=== PATIENT | male | born 1970 | race Hispanic/Latino ===

== ENCOUNTER 2021-09-03 13:50 | Inpatient (IN) | payer BC, OTHER ==
[2021-09-03] VITALS (14 sets, daily range): BP systolic 120–164; BP diastolic 47–108
[~2021-09-03] VITALS: Ht 162.6 cm; Wt 64.4 kg
[2021-09-03] MEDS ORDERED: IOHEXOL-350 50ML VIAL IV ONE (13:52)
[2021-09-03] MEDS ORDERED: IOHEXOL 350 MG/ML 100ML INFUS..BTL IV ONE ×2 (13:52→14:26)
[2021-09-03] MEDS ORDERED: NITROGLYCERIN 50MG VIAL IV ONE (13:52)
[2021-09-03] MEDS ORDERED: LIDOCAINE HCL 400MG/20ML VIAL ONE (13:52)
[2021-09-03] MEDS ORDERED: BIVALIRUDIN 250 MG/VIAL IV ONE (14:04)
[2021-09-03] MEDS ORDERED: FENTANYL CITRATE PF 50 MCG/1 ML 2ML VIAL ONE (14:09)
[2021-09-03] MEDS ORDERED: CLOPIDOGREL 300MG TAB ONE (14:09)
[2021-09-03] MEDS ORDERED: HEPARIN 10,000 UNIT/10ML (1,000 UNIT/ML) VIAL ONE (14:11)
[2021-09-03] MEDS ORDERED: ATROPINE 1MG SYG IVP ONE (14:15)
[2021-09-03] MEDS ORDERED: EPTIFIBATIDE 2 MG/ML 10 ML VIAL IVP ONE (14:18)
[2021-09-03] MEDS ORDERED: EPTIFIBATIDE 75MG/100ML BOTTLE 100 ML IV ONE (14:19)
[2021-09-03] MEDS ORDERED: EPTIFIBATIDE 75MG/100ML BOTTLE 100 ML IV SCH (15:30)
[2021-09-03] MEDS ORDERED: METO-391 PO (16:04)
[2021-09-03] MEDS ORDERED: LISI2.5T13 PO (16:04)
[2021-09-03] MEDS ORDERED: ASPI-1197 PO (16:04)
[2021-09-03] MEDS ORDERED: ACETAMINOPHEN 325 MG TAB PO PRN ×2 (17:00)
[2021-09-03] MEDS ORDERED: IPRATROPIUM/ALBUTEROL SULFATE 3 ML SOLUTION IH PRN (17:00)
[2021-09-03 17:30] LABS: HEMOGLOBIN A1C 6.4 % (4.0-6.0)
[2021-09-03 17:33] LABS: THYROID STIMULATING HORMONE 0.8 uIU/mL (0.36-3.74)
[2021-09-03] MEDS: INSULIN HUMULIN R 100 UNIT/ML 3ML SQ SCH (20:53)
[2021-09-03] MEDS: LISINOPRIL 5 MG TABLET PO SCH (20:57)
[2021-09-03] MEDS: ATORVASTATIN 40 MG TABLET PO SCH (20:57)
[2021-09-03] MEDS ORDERED: FOLIC ACID 1 MG TABLET PO ONE (21:00)
[2021-09-03] MEDS ORDERED: THIAMINE HCL 100 MG TABLET PO ONE (21:00)
[2021-09-03] MEDS ORDERED: METOPROLOL TARTRATE 25 MG TAB PO SCH (21:00)
[2021-09-04] VITALS (15 sets, daily range): BP systolic 110–142; BP diastolic 63–94
[2021-09-04 03:44] LABS: BASOPHILS % (AUTO) 0.4 % (0.0-5.0); EOSINOPHILS % (AUTO) 1.2 % (0.0-8.0); HEMATOCRIT 41.9 % (42-54); LYMPHOCYTES % (AUTO) 21.4 % (21.0-51.0); MEAN CORPUSCULAR HEMOGLOBIN 29.9 pg (27.0-33.0); MEAN CORPUSCULAR HGB CONC 32.7 g/dL (32.0-36.0); MEAN CORPUSCULAR VOLUME 91.5 fL (79-99); MONOCYTES % (AUTO) 6.5 % (3.0-13.0); NEUTROPHILS % (AUTO) 70.2 % (40.0-77.0); PLATELET COUNT (AUTO) 298 K/uL (130-400); RED BLOOD CELL COUNT(AUTO) 4.58 MIL/uL (4.50-6.20); RED CELL DISTRIBUTION WIDTH 13.7 % (11.0-15.5); WHITE BLOOD COUNT (AUTO) 10.9 K/uL (4.8-10.8)
[2021-09-04 04:18] LABS: ALBUMIN 3.5 g/dL (3.5-5.0); BILIRUBIN,TOTAL 0.5 mg/dL (0.2-1.0); CREATININE 0.9 mg/dL (0.5-1.5); MAGNESIUM 2.3 mg/dL (1.80-2.40); POTASSIUM 3.4 mmol/L (3.5-5.1); TOTAL PROTEIN, SERUM 7.4 g/dL (6.0-8.3)
[2021-09-04] MEDS: INSULIN HUMULIN R 100 UNIT/ML 3ML SQ SCH ×4 (05:12→20:59)
[2021-09-04] MEDS ORDERED: KCL 20 MEQ ERTAB PO SCH (08:30)
[2021-09-04] MEDS: ASPIRIN 325MG EC TAB PO SCH (08:50)
[2021-09-04] MEDS: PANTOPRAZOLE 40 MG TAB DR PO SCH (08:51)
[2021-09-04] MEDS: THIAMINE HCL 100 MG TABLET PO SCH (08:51)
[2021-09-04] MEDS: FOLIC ACID 1 MG TABLET PO SCH (08:51)
[2021-09-04] MEDS: METOPROLOL SUCCINATE 50 MG TAB.SR.24H PO SCH (08:52)
[2021-09-04] MEDS ORDERED: CLOPIDOGREL 75MG TAB PO SCH (09:00)
[2021-09-04] MEDS ORDERED: ATOR40TA71 PO (20:29)
[2021-09-04] MEDS ORDERED: LISI5TAB21 PO (20:29)
[2021-09-04] MEDS ORDERED: PRAS10TA9 PO (20:29)
[2021-09-04] MEDS: ATORVASTATIN 40 MG TABLET PO SCH (21:01)
[2021-09-04] MEDS: LISINOPRIL 5 MG TABLET PO SCH (21:02)
[2021-09-04] MEDS ORDERED: PRASUGREL HCL 10 MG TABLET PO SCH (21:50)
[2021-09-05 03:15] VITALS: BP 127/74
[2021-09-05 05:22] LABS: APPEARANCE,URINE Clear (CLEAR); BILIRUBIN,URINE Negative (NEGATIVE); COLOR,URINE Yellow (YELLOW); GLUCOSE, URINE (UA) Negative (NEGATIVE); KETONES,URINE Negative (NEGATIVE); LEUKOCYTE ESTERASE ,URINE Negative (NEGATIVE); NITRATE,URINE Negative (NEGATIVE); OCCULT BLOOD,URINE Small (NEGATIVE); PH,URINE 5.5 (5.0-8.0); PROTEIN,URINE Negative (NEGATIVE)
[2021-09-05 05:29] LABS: AMPHET/METH SCREEN,URINE NEGATIVE (NEGATIVE); BARBITURATE SCREEN, URINE NEGATIVE (NEGATIVE); BENZODIAZEPINES SCREEN,URINE NEGATIVE (NEGATIVE); CANNABINOID SCREEN,URINE NEGATIVE (NEGATIVE); COCAINE SCREEN,URINE POSITIVE (NEGATIVE); OPIATE SCREEN,URINE NEGATIVE (NEGATIVE); PHENCYCLIDINE SCREEN,URINE NEGATIVE (NEGATIVE)
[2021-09-05 05:35] LABS: BASOPHILS % (AUTO) 0.4 % (0.0-5.0); HEMATOCRIT 39.5 % (42-54); LYMPHOCYTES % (AUTO) 31.1 % (21.0-51.0); MEAN CORPUSCULAR HEMOGLOBIN 30.3 pg (27.0-33.0); MEAN CORPUSCULAR HGB CONC 33.2 g/dL (32.0-36.0); MEAN CORPUSCULAR VOLUME 91.2 fL (79-99); MONOCYTES % (AUTO) 7.6 % (3.0-13.0); NEUTROPHILS % (AUTO) 58.5 % (40.0-77.0); PLATELET COUNT (AUTO) 289 K/uL (130-400); RED BLOOD CELL COUNT(AUTO) 4.33 MIL/uL (4.50-6.20); RED CELL DISTRIBUTION WIDTH 13.7 % (11.0-15.5); WHITE BLOOD COUNT (AUTO) 9.1 K/uL (4.8-10.8)
[2021-09-05 05:37] LABS: BACTERIA,URINE Rare /HPF (None Seen); WBC,URINE 0-1 /HPF (0-1)
[2021-09-05 05:47] LABS: CREATININE 1.1 mg/dL (0.5-1.5); MAGNESIUM 2.1 mg/dL (1.80-2.40); POTASSIUM 3.9 mmol/L (3.5-5.1)
[2021-09-05] MEDS: INSULIN HUMULIN R 100 UNIT/ML 3ML SQ SCH ×4 (06:32→20:54)
[2021-09-05 08:00] VITALS: BP 130/68
[2021-09-05] MEDS: FOLIC ACID 1 MG TABLET PO SCH (08:52)
[2021-09-05] MEDS: PANTOPRAZOLE 40 MG TAB DR PO SCH (08:52)
[2021-09-05] MEDS: ASPIRIN 325MG EC TAB PO SCH (08:52)
[2021-09-05] MEDS: THIAMINE HCL 100 MG TABLET PO SCH (08:53)
[2021-09-05] MEDS: METOPROLOL SUCCINATE 50 MG TAB.SR.24H PO SCH (08:53)
[2021-09-05 11:19] VITALS: BP 109/68
[2021-09-05 16:00] VITALS: BP 104/67
[2021-09-05 19:55] VITALS: BP 111/76
[2021-09-05] MEDS: LISINOPRIL 5 MG TABLET PO SCH (21:00)
[2021-09-05] MEDS: ATORVASTATIN 40 MG TABLET PO SCH (21:01)
[2021-09-05 23:38] VITALS: BP_SYST 120; BP_SYST 138; BP_DIAS 80; BP_DIAS 88
[2021-09-06 03:35] VITALS: BP 123/72
[2021-09-06 05:50] LABS: BASOPHILS % (AUTO) 0.6 % (0.0-5.0); EOSINOPHILS % (AUTO) 2.8 % (0.0-8.0); HEMATOCRIT 38.4 % (42-54); LYMPHOCYTES % (AUTO) 28.5 % (21.0-51.0); MEAN CORPUSCULAR HEMOGLOBIN 30.3 pg (27.0-33.0); MEAN CORPUSCULAR HGB CONC 32.8 g/dL (32.0-36.0); MEAN CORPUSCULAR VOLUME 92.3 fL (79-99); MONOCYTES % (AUTO) 10.1 % (3.0-13.0); NEUTROPHILS % (AUTO) 57.7 % (40.0-77.0); PLATELET COUNT (AUTO) 283 K/uL (130-400); RED BLOOD CELL COUNT(AUTO) 4.16 MIL/uL (4.50-6.20); RED CELL DISTRIBUTION WIDTH 13.6 % (11.0-15.5); WHITE BLOOD COUNT (AUTO) 8.9 K/uL (4.8-10.8)
[2021-09-06 06:00] LABS: CREATININE 1.1 mg/dL (0.5-1.5); MAGNESIUM 2.1 mg/dL (1.80-2.40)
[2021-09-06] MEDS: INSULIN HUMULIN R 100 UNIT/ML 3ML SQ SCH (06:00)
[2021-09-06 07:44] VITALS: BP 122/70
[2021-09-06] MEDS: FOLIC ACID 1 MG TABLET PO SCH (08:14)
[2021-09-06] MEDS: PANTOPRAZOLE 40 MG TAB DR PO SCH (08:14)
[2021-09-06] MEDS: THIAMINE HCL 100 MG TABLET PO SCH (08:14)
[2021-09-06] MEDS: METOPROLOL SUCCINATE 50 MG TAB.SR.24H PO SCH (08:14)
[2021-09-06] MEDS: ASPIRIN 325MG EC TAB PO SCH (08:14)
[2021-09-06] MEDS ORDERED: PRASUGREL HCL 10 MG TABLET PO SCH (09:00)
[2021-09-06 11:51] VITALS: BP 111/71
== END 2021-09-06 13:10 | disposition home or self-care (01) | DRG 250 ==
LOC: OBSVTOIN 14:05 → EDHIP 14:05 → 2CH 15:02 → 2AH 09-04 17:16
PROVIDERS: ADMIT Internal Medicine; ATTEND Internal Medicine
PROC: 02703ZZ Dilation of Coronary Artery, One Artery, Percutaneous Approach (ICD-10-PCS; principal; 2021-09-03)
PROC: 4A023N7 Measurement of Cardiac Sampling and Pressure, Left Heart, Percutaneous Approach (ICD-10-PCS; 2021-09-03)
PROC: B2111ZZ Fluoroscopy of Multiple Coronary Arteries using Low Osmolar Contrast (ICD-10-PCS; 2021-09-03)
PROC: B2151ZZ Fluoroscopy of Left Heart using Low Osmolar Contrast (ICD-10-PCS; 2021-09-03)
PROC: B41F1ZZ Fluoroscopy of Right Lower Extremity Arteries using Low Osmolar Contrast (ICD-10-PCS; 2021-09-03)
DX: I21.19 ST elevation (STEMI) myocardial infarction involving other coronary artery of inferior wall (principal); I50.23 Acute on chronic systolic (congestive) heart failure; I25.5 Ischemic cardiomyopathy; F14.10 Cocaine abuse, uncomplicated; E78.5 Hyperlipidemia, unspecified; I25.10 Atherosclerotic heart disease of native coronary artery without angina pectoris; F17.210 Nicotine dependence, cigarettes, uncomplicated; Z90.49 Acquired absence of other specified parts of digestive tract; Z79.899 Other long term (current) drug therapy; I25.2 Old myocardial infarction; Z91.19 Patient's noncompliance with other medical treatment and regimen; Z82.5 Family history of asthma and other chronic lower respiratory diseases; Z82.3 Family history of stroke; Z82.0 Family history of epilepsy and other diseases of the nervous system; Z82.49 Family history of ischemic heart disease and other diseases of the circulatory system; I11.0 Hypertensive heart disease with heart failure
CPT/HCPCS: 36415; 80048; 80053; 80061; 80305; 81001; 82948; 83036; 83735; 84443; 84484; 85025; 85347; 92920; 93306; 93356; 93458; C1760; C1769; C1887; C1894; G0378; J0461; J0583; J1327; J1644; J3010; J3490; Q9967